=== PATIENT | male | born 1990 | race Caucasian/White ===

== ENCOUNTER → 2020-05-16 | Outpatient (CLI) | payer OTHER ==
[2020-05-16 14:14] LABS: SEMEN VOLUME 3.8 ML (1.5-5.0)
[2020-05-16 22:58] LABS: HEPATITIS C ANTIBODY C Non-Reactive (Non-Reactive)
== END ==
LOC: LAB 13:20
DX: Z11.4 Encounter for screening for human immunodeficiency virus [HIV] (principal); Z11.59 Encounter for screening for other viral diseases; Z31.41 Encounter for fertility testing
CPT/HCPCS: 36415; 86703; 86780; 86803; 87350; 87591; 89320